=== PATIENT | female | born 1950 | race Hispanic/Latino ===

== ENCOUNTER 2017-10-10 10:30 | Emergency (ER) | payer MEDICARE, MEDICAID ==
[2017-10-10 11:15] VITALS: BMI 25.7
[2017-10-10 11:18] VITALS: BP 139/78; PULSE 90; RESP 17; TEMP 98.8; O2SAT 98
--- NOTE | 2017-10-10 11:48 | ED PDOC ---
HPI: Back Time Seen by Provider: 10/10/17 11:35 Chief Complaint (Nursing): Back Pain Chief Complaint (Provider): Low ack pain, knee pain, feet cramping History Per: Patient History/Exam Limitations: no limitations Onset/Duration Of Symptoms: Days Current Symptoms Are (Timing): Still Present Quality Of Discomfort: Sharp Severity: Moderate Previous Symptoms: None Associated Symptoms: None Additional Complaint(s): 66 yo female with no medical problems presents for evaluation of bilateral knee pain and low back pain. PT states it has been going on for a few months and when she saw her PMD last she forgot to mention it. Pt states she cannot walk due to knee pain and that she is unable to full bend or straighten knees. Pt states when she lays down at night she also gets cramping in both feet which is very painful and uncontrollable. Pt states she also has been having frequent urination for the last week. Past Medical History Reviewed: Historical Data, Nursing Documentation, Vital Signs Vital Signs: Last Vital Signs Temp 98.8 F 10/10/17 11:17 Pulse 90 10/10/17 11:17 Resp 17 10/10/17 11:17 BP 139/78 10/10/17 11:17 Pulse Ox 98 10/10/17 11:17 - Medical History PMH: No Chronic Diseases Other PMH: Pre-DM - Surgical History Surgical History: No Surg Hx - Family History Family History: States: No Known Family Hx - Living Arrangements Living Arrangements: With Family - Social History Current smoker - smoking cessation education provided: No - Immunization History Hx Tetanus Toxoid Vaccination: Yes Hx Influenza Vaccination: No Hx Pneumococcal Vaccination: No - Home Medications Home Medications: Ambulatory Orders Medication Instructions Recorded Nitrofurantoin Macrocrystals 100 mg PO BID #10 cap 10/10/17 [Macrobid] - Allergies Allergies/Adverse Reactions: Allergies Allergy/AdvReac Type Severity Reaction Status Date / Time acetaminophen [From Tylenol] AdvReac ANAPHYLAXIS Verified 10/10/17 11:24 aspirin AdvReac ANAPHYLAXIS Verified 10/10/17 11:24 ibuprofen [From Advil] AdvReac ANAPHYLAXIS Verified 10/10/17 11:24 Penicillins AdvReac ANAPHYLAXIS Verified 10/10/17 11:24 Review of Systems ROS Statement: Except As Marked, All Systems Reviewed And Found Negative Constitutional: Negative for: Fever, Chills Respiratory: Negative for: Shortness of Breath Gastrointestinal: Negative for: Nausea, Vomiting, Abdominal Pain Genitourinary Female: Positive for: Frequency Musculoskeletal: Positive for: Back Pain Neurological: Positive for: Other Physical Exam - Reviewed Nursing Documentation Reviewed: Yes Vital Signs Reviewed: Yes - Physical Exam Appears: Positive for: Well, Non-toxic, No Acute Distress Head Exam: Positive for: ATRAUMATIC, NORMAL INSPECTION, NORMOCEPHALIC Skin: Positive for: Normal Color, Warm, DRY Eye Exam: Positive for: Normal appearance ENT: Positive for: Normal ENT Inspection Neck: Positive for: Normal, Painless ROM Cardiovascular/Chest: Positive for: Regular Rate, Rhythm Respiratory: Positive for: CNT, Normal Breath Sounds Back: Positive for: Normal Inspection, Vertebral Tenderness Extremity: Positive for: Normal ROM Neurologic/Psych: Positive for: Alert, Oriented - Laboratory Results Result Diagrams: 10/10/17 14:28 10/10/17 14:28 - ECG O2 Sat by Pulse Oximetry: 98 Medical Decision Making Medical Decision Making: Due to multiple allergies patient does not want anything for pain at this time. Disposition - Clinical Impression Clinical Impression: UTI (urinary tract infection), Herniated intervertebral disc of lumbar spine - Patient ED Disposition Is Patient to be Admitted: No Counseled Patient/Family Regarding: Diagnosis, Need For Followup, Rx Given - Disposition Referrals: Soren Hendricks MD [Staff Provider] - Disposition: Routine/Home Disposition Time: 14:54 Condition: STABLE Prescriptions: Nitrofurantoin Macrocrystals [Macrobid] 100 mg PO BID #10 cap Instructions: Urinary Tract Infection, Adult (DC) Forms: [employer] (Green[place]ic)
--- NOTE | 2017-10-10 12:56 | RAD ---
Date of service: 10/10/2017 PROCEDURE: Bilateral Knee Radiographs. HISTORY: knee pain COMPARISON: None. FINDINGS: BONES: Right Knee: No acute fracture. Left Knee: No acute fracture. JOINTS: Right Knee: Tricompartmental narrowing with mild degenerative spurring. Chondrocalcinosis within the tibial femoral compartment joint space. Left knee: Tricompartmental narrowing with mild degenerative spurring. Chondrocalcinosis within the tibial femoral compartment joint space. SOFT TISSUES: Right Knee: Normal. Left Knee: Normal. JOINT EFFUSION: Right Knee: None. Left Knee: Moderate suprapatellar effusion. OTHER FINDINGS: None. IMPRESSION: Left suprapatellar joint effusion. No demonstrated fracture or dislocation. Tricompartmental degenerative changes.
--- NOTE | 2017-10-10 13:13 | CT ---
Date of service: 10/10/2017 PROCEDURE: CT Lumbar Spine without contrast HISTORY: back pain, cramping in feet COMPARISON: None. TECHNIQUE: Axial computed tomography images were obtained of the lumbar spine without the use of intravenous contrast. Coronal and sagittal reformatted images were created and reviewed. Radiation dose: Total exam DLP = 580.76 mGy-cm. This CT exam was performed using one or more of the following dose reduction techniques: Automated exposure control, adjustment of the mA and/or kV according to patient size, and/or use of iterative reconstruction technique. FINDINGS: VERTEBRAE: There is no evidence of acute fracture. Multiple Schmorl nodes seen at T12, L1 and L2. There is a mild grade 1 anterior spondylolisthesis of L2 relative to L1 and L3 relative to L2 noted. Mild dextroscoliosis is noted. DISCS/SPINAL CANAL/NEURAL FORAMINA: L1-2: There is moderate-size posterior osteophyte disc bulge associated with posterior ligament and facet joint hypertrophy which resulting in mild spinal and bilateral neural foraminal narrowing left more than right. L2-3: There is a broad-based posterior disc bulge associated with posterior ligament and facet joint hypertrophy which resulting in mild spinal stenosis. L3-4: There is moderate-size posterior osteophyte disc bulge complex associated with posterior ligament and facet joint hypertrophy resulting in [id number] spinal and mild bilateral neural foraminal narrowing. L4-5: There is small to moderate-sized disc herniation associated with posterior ligament and facet joint hypertrophy which resulting in moderate spinal and mild neural foraminal narrowing L5-S1: Small broad-based disc bulge associated with posterior ligament and facet joint hypertrophy without evidence of significant spinal or neural foraminal narrowing. PARASPINAL SOFT TISSUES: Unremarkable. OTHER FINDINGS: None. IMPRESSION: Moderate lumbar spondylosis. Mild dextroscoliosis. Mild grade 1 anterior spondylolisthesis of L2 relative to L1 and L3 relative to L2. Multilevel small to moderate-sized posterior osteophyte disc bulge/herniation associated with posterior ligament and facet joint hypertrophy which resulting in multilevel spinal and neural foraminal narrowing as described above.
[2017-10-10 14:12] LABS: SQUAMOUS EPITHIAL 4 /hpf (0-5); URINE BILIRUBIN NEGATIVE (NEGATIVE); URINE BLOOD SMALL (NEGATIVE); URINE CLARITY CLEAR (Clear); URINE COLOR YELLOW (YELLOW); URINE GLUCOSE (UA) NEG (Normal); URINE LEUKOCYTE ESTERASE MOD Leu/uL (Negative); URINE PROTEIN NEGATIVE (NEGATIVE); URINE UROBILINOGEN 0.2-1.0 mg/dL (0.2-1.0)
[2017-10-10 14:35] LABS: BASO % 0.7 % (0.0-2.0); EOS % 0.5 % (0.0-4.0); HEMOGLOBIN 14.5 g/dL (12.0-16.0); LYMPH # 2.2 K/uL (1.0-4.3); LYMPH % 33.4 % (20.0-40.0); MEAN CELL VOLUME 93.6 fl (81.0-99.0); MEAN CORPUSCULAR HGB CONC 34.2 g/dL (33.0-37.0); MEAN PLATELET VOLUME 7.7 fl (7.2-11.7); MONO # 0.6 K/uL (0.0-0.8); MONO % 9.8 % (0.0-10.0); NEUT # 3.7 K/uL (1.8-7.0); NEUT % 55.6 % (50.0-75.0); RBC 4.53 Mil/uL (3.80-5.20); WHITE BLOOD COUNT 6.6 K/uL (4.8-10.8)
[2017-10-10 14:50] LABS: ALB/GLOB RATIO 1.3 (1.0-2.1); ALBUMIN 4.2 g/dL (3.5-5.0); ALT/SGPT 21 U/L (9-52); AST/SGOT 19 U/L (14-36); BLOOD UREA NITROGEN 9 mg/dl (7-17); CALCIUM 9.3 mg/dL (8.4-10.2); GFR AFRICAN-AMERICAN > 60; GFR NON-AFRICAN AMERICAN > 60
== END 2017-10-10 15:06 | disposition home or self-care (01) ==
LOC: H.ER 10:30
DX: M51.26 Other intervertebral disc displacement, lumbar region (principal); N39.0 Urinary tract infection, site not specified